=== PATIENT | male | born 1990 | race Two or more races ===

== ENCOUNTER 2018-05-30 13:50 | Emergency (ER) | payer SELFPAY ==
[~2018-05-30] VITALS: Ht 165.1 cm; Wt 93.0 kg
--- NOTE | 2018-05-30 14:34 | RAD ---
CT Head without contrast 05/30/2018 Clinical Indication: Fall with headache Comparison: None Technique: Multiple CT images of the head were obtained without contrast. *One or more of the following individualized dose reduction techniques were utilized for this examination: 1. Automated exposure control. 2. Adjustment of the mA and/or kV according to patient size. 3. Use of iterative reconstruction technique. Findings: Ventricles and subarachnoid spaces are normal in size and configuration for age. No acute intracranial hemorrhage or extra-axial fluid collection. The atkins-white matter interfaces are maintained. No midline shift. The basal cisterns are patent. Small bilateral sinus mucosal retention cysts. Impression: No acute intracranial hemorrhage. Electronically signed by: Danie Schulte MD (05/30/2018 2:31 PM) [facility] [place]
[2018-05-30 15:22] VITALS: BP 134/64
--- NOTE | 2018-05-30 15:23 | PHYS DOC ---
Past Medical History Past Medical History: Anxiety, Depression Past Surgical History: No Surgical History Alcohol Use: None Drug Use: Marijuana Adult General Chief Complaint Chief Complaint: MECHANICAL FALL HPI HPI Patient is a 28 year old male who presents with complaints of a headache after he fell down stairs today. The patient was brought to this facility by EMS. When I walked into the patient's room he was in the room alone taking all of his clothes off. He ambulated from the ambulance to the room. He is moving all extremities. He states that he took ibuprofen and hydrocodone before he called EMS. He states that he landed on his left hip and has left hip pain. He refuses to answer questions directly when asked. He has multiple scratches on his face, neck and behind his ears that appear to be fingernail scratches. He states that he must abdomen to himself. I asked if he lost consciousness and he gave a vague answer. His story is not consistent with his injuries. Review of Systems Review of Systems Constitutional: Denies fever or chills [] Eyes: Denies change in visual acuity, redness, or eye pain [] HENT: Denies nasal congestion or sore throat [] Respiratory: Denies cough or shortness of breath [] Cardiovascular: No additional information not addressed in HPI [] GI: Denies abdominal pain, nausea, vomiting, bloody stools or diarrhea [] : Denies dysuria or hematuria [] Musculoskeletal: See history of present illness Integument: See history of present illness Neurologic: See history of present illness Endocrine: Denies polyuria or polydipsia [] All other systems were reviewed and found to be within normal limits, except as documented in this note. Allergies Allergies Allergies Coded Allergies Type Severity Reaction Last Updated Verified No Known Drug Allergies 05/30/18 No Physical Exam Physical Exam Constitutional: Well developed, well nourished, no acute distress, non-toxic appearance. [] HENT: Normocephalic, bilateral and panic membranes normal, oropharynx moist, no oral exudates, nose normal. [] Eyes: PERRLA, EOMI, conjunctiva normal, no discharge. [] Neck: Normal range of motion, no point spinal tenderness, supple, no stridor. [ ] Cardiovascular:Heart rate regular rhythm, no murmur [] Lungs & Thorax: Bilateral breath sounds clear to auscultation [] Abdomen: Bowel sounds normal, soft, no tenderness, no masses, no pulsatile masses. [] Skin: Multiple scratches to the patient's face and behind bilateral ears that appear to be fingernail scratches, there is also a scratch to the top of the left shoulder in the shape of a hand print Back: No tenderness, no CVA tenderness. [] Extremities: tenderness to left hip with no ecchymosis, contusion or edema noted , no cyanosis, no clubbing, ROM intact Neurologic: Alert and oriented X 3, normal motor function, normal sensory function, no focal deficits noted, cranial nerves II through XII are grossly intact. [] Psychologic: Affect normal, judgement normal, mood normal. [] Current Patient Data Vital Signs Vital Signs Date Time Temp Pulse Resp B/P (MAP) Pulse Ox O2 Delivery O2 Flow Rate FiO2 05/30/18 13:50 98.4 91 20 135/60 (85) 95 Room Air 98.4 EKG EKG [] Radiology/Procedures Radiology/Procedures []PATIENT: JACQUELINE ALBACOUNT: [id number]#: [id number] : 1990 LOCATION: ER AGE: 28 SEX: M EXAM STATUS: REG ER ORD. PHYSICIAN: SOHAN GRAYSON APRN REASON: fell down stairs, LOC with increasing headache PROCEDURE: CT HEAD WO CONTRAST CT Head without contrast 05/30/2018 Clinical Indication: Fall with headache Comparison: None Technique: Multiple CT images of the head were obtained without contrast. *One or more of the following individualized dose reduction techniques were utilized for this examination: 1. Automated exposure control. 2. Adjustment of the mA and/or kV according to patient size. 3. Use of iterative reconstruction technique. Findings: Ventricles and subarachnoid spaces are normal in size and configuration for age. No acute intracranial hemorrhage or extra-axial fluid collection. The atkins-white matter interfaces are maintained. No midline shift. The basal cisterns are patent. Small bilateral sinus mucosal retention cysts. Impression: No acute intracranial hemorrhage. Electronically signed by: Nadira Schulte MD (05/30/2018 2:31 PM) [facility] DICTATED and SIGNED BY: NADIRA SCHULTE MD DATE: 05/30/18 9108 Course & Med Decision Making Course & Med Decision Making Pertinent Labs and Imaging studies reviewed. (See chart for details) []The patient was informed of his normal test results. He then started to complain of multiple other complaints. The nurse pointed out that he was moving all extremities upon arrival in the emergency department. He continued to argue with her stating that he was having muscle aches. We explained to him that he needs to take ibuprofen or Tylenol at home for the musculoskeletal pain. He is to use ice packs to help with pain as well. He continued to argue with the nurse and told her that he was not going to leave the facility. He was provided with an arm sling. He then asked for a cab pass. The nurse explained that he needed to call someone for a ride home. I did ask the patient if he was threatened in the community and was trying to hide in the hospital and if that was why he was unwilling to leave the facility. He refused to answer me. The nurse finally let him know that we would call police to have him escorted from the grounds if he did not get dressed and leave. The patient stated that he did not want the police called. He then did put on his clothes and was taking to the lobby. Dragon Disclaimer Dragon Disclaimer This electronic medical record was generated, in whole or in part, using a voice recognition dictation system. Departure Departure Impression: Primary Impression: Abrasions of multiple sites Additional Impression: Head injury Disposition: 01 HOME, SELF-CARE Condition: STABLE Referrals: NO PCP (PCP) Patient Instructions: Abrasions, Head Injury, Adult Additional Instructions: Keep the abrasions clean and dry. You may use ibuprofen or Tylenol for pain. Follow-up with your primary care provider in 3 days for recheck or return to the emergency department if worsening. Problem Qualifiers SOHAN GRAYSON APRN May 30, 2018 15:23
== END 2018-05-30 16:07 | disposition home or self-care (01) ==
LOC: ER 13:50
DX: S00.81XA Abrasion of other part of head, initial encounter (principal); S40.212A Abrasion of left shoulder, initial encounter; M25.552 Pain in left hip; F41.9 Anxiety disorder, unspecified; F32.9 Major depressive disorder, single episode, unspecified; W10.8XXA Fall (on) (from) other stairs and steps, initial encounter; Y93.89 Activity, other specified; Y92.89 Other specified places as the place of occurrence of the external cause; Y99.8 Other external cause status
CPT/HCPCS: 70450; 99284